=== PATIENT | male | born 1970 | race Caucasian/White ===

== ENCOUNTER 2018-03-25 09:36 | Emergency (ER) | payer OTHER, SELFPAY ==
[2018-03-25] MEDS: GI COCKTAIL 50ML BTL(HYOSCYAMINE/MAALOX/LIDOCAINE VISCOUS)(1:3:1) PO (10:12)
== END 2018-03-25 10:18 | disposition home or self-care (01) ==
LOC: M ED 09:36
DX: K21.0 Gastro-esophageal reflux disease with esophagitis (principal); J45.909 Unspecified asthma, uncomplicated; F41.9 Anxiety disorder, unspecified; E78.9 Disorder of lipoprotein metabolism, unspecified; Z79.899 Other long term (current) drug therapy; Z91.048 Other nonmedicinal substance allergy status
CPT/HCPCS: 99282

== ENCOUNTER 2018-04-02 05:10 | Emergency (ER) | payer OTHER ==
[2018-04-02] MEDS: FLEET OIL RETENTION ENEMA PR (07:07)
[2018-04-02] MEDS ORDERED: KETOROLAC 60 MG/2 ML VIAL (J1885) IM (08:00)
[2018-04-02] MEDS ORDERED: MAGNESIUM CITRATE 300 ML BTL PO (09:15)
== END 2018-04-02 09:50 | disposition home or self-care (01) ==
LOC: M ED 05:10
DX: K59.00 Constipation, unspecified (principal); E78.00 Pure hypercholesterolemia, unspecified; F41.9 Anxiety disorder, unspecified; Z79.899 Other long term (current) drug therapy; Z91.048 Other nonmedicinal substance allergy status
CPT/HCPCS: 74019

== ENCOUNTER 2018-05-14 09:18 | Emergency (ER) | payer OTHER, SELFPAY | END 2018-05-14 09:46 | disposition home or self-care (01) | LOC: M ED 09:18 | DX: S10.86XA Insect bite of other specified part of neck, initial encounter (principal); S40.861A Insect bite (nonvenomous) of right upper arm, initial encounter; S80.861A Insect bite (nonvenomous), right lower leg, initial encounter; S80.812A Abrasion, left lower leg, initial encounter; T63.441A Toxic effect of venom of bees, accidental (unintentional), initial encounter; L03.115 Cellulitis of right lower limb; X58.XXXA Exposure to other specified factors, initial encounter; Y92.89 Other specified places as the place of occurrence of the external cause; K22.70 Barrett's esophagus without dysplasia; J45.909 Unspecified asthma, uncomplicated; Z91.048 Other nonmedicinal substance allergy status; Z79.899 Other long term (current) drug therapy | CPT/HCPCS: 99282 ==

== ENCOUNTER 2018-11-05 02:30 | Emergency (ER) | payer OTHER ==
[~2018-11-05] VITALS: Ht 172.7 cm; Wt 72.7 kg
[2018-11-05 02:30] VITALS: BP 157/102
[~2018-11-05 02:30] MED LIST: CRES20TA PO; KEFL500C17 PO; LIDO1SOL7 PO; OMEP40CA2 PO; PRED20TA PO; PROT1TAB2 PO; ZOFR4TAB14 PO
[2018-11-05] MEDS ORDERED: AUGMENTIN 875 MG TAB PO ONE (03:00)
[2018-11-05] MEDS ORDERED: AUGM500T34 PO (03:01)
== END 2018-11-05 03:13 | disposition home or self-care (01) ==
LOC: M ED 02:30
DX: J02.9 Acute pharyngitis, unspecified (principal); R50.9 Fever, unspecified; K21.9 Gastro-esophageal reflux disease without esophagitis; Z91.018 Allergy to other foods; Z79.899 Other long term (current) drug therapy

== ENCOUNTER 2019-10-08 08:44 | Emergency (ER) | payer OTHER, SELFPAY ==
[~2019-10-08] VITALS: Ht 172.7 cm; Wt 83.0 kg
[~2019-10-08 08:44] MED LIST changes: +AUGM500T34 PO; -CRES20TA PO; +CRES20TA2 PO; -LIDO1SOL7 PO; +LIDO1SOL8 PO; -OMEP40CA2 PO; +OMEP40CA97 PO
[2019-10-08] MEDS ORDERED: metoprolol (08:54)
[2019-10-08] MEDS ORDERED: ROSU5TAB5 PO (08:54)
[2019-10-08 10:41] LABS: INFLUENZA A AMPLIFICATION NEGATIVE (NEGATIVE); INFLUENZA B AMPLIFICATION NEGATIVE (NEGATIVE)
[2019-10-08] MEDS ORDERED: MUCI600T31 PO (10:47)
[2019-10-08] MEDS ORDERED: BENZ200C70 PO (10:47)
[2019-10-08 10:50] VITALS: BP 143/92
== END 2019-10-08 10:52 | disposition home or self-care (01) ==
LOC: M ED 08:44
DX: J06.9 Acute upper respiratory infection, unspecified (principal); B34.9 Viral infection, unspecified

== ENCOUNTER → 2020-07-28 | Outpatient (CLI) | payer SELFPAY ==
[~2020-07-28] MED LIST changes: +BENZ200C70 PO; -LIDO1SOL8 PO; +LIDO2SOL17 PO; +MUCI600T31 PO; +ROSU5TAB5 PO; +metoprolol
== END ==
LOC: M LABSMTC 13:20
PROVIDERS: ATTEND Pediatrics
DX: Z20.828 Contact with and (suspected) exposure to other viral communicable diseases (principal)

== ENCOUNTER → 2020-08-25 | Outpatient (CLI) | payer OTHER, SELFPAY ==
[~2020-08-25] MED LIST changes: +FLON1SPR NARES; +LEVAINH INH
== END ==
LOC: M LABSMTC 11:30
PROVIDERS: ATTEND Family Medicine
DX: Z11.59 Encounter for screening for other viral diseases (principal)

== ENCOUNTER 2020-09-11 11:16 | Emergency (ER) | payer OTHER, MEDICAID ==
[~2020-09-11] VITALS: Ht 172.7 cm; Wt 92.1 kg
[~2020-09-11 11:16] MED LIST changes: -FLON1SPR NARES; -LEVAINH INH
[2020-09-11] MEDS ORDERED: FLON1SPR NARES (11:25)
[2020-09-11 12:21] LABS: BASO % 0.8 % (0.0-1.0); EOS # 0.2 10^3/uL (0.0-0.5); EOS % 4.5 % (0.0-3.0); HEMATOCRIT 47.8 % (42.0-52.0); HEMOGLOBIN 15.9 g/dl (13.5-17.5); LYMPH % 38.4 % (24.0-44.0); MEAN CORPUSCULAR HEMOGLOBIN 30.2 pg (27.0-33.0); MEAN CORPUSCULAR HGB CONC 33.3 g/dl (32.0-36.5); MEAN CORPUSCULAR VOLUME 90.7 fl (80.0-96.0); MONO # 0.4 10^3/uL (0.0-0.8); MONO % 8.4 % (0.0-5.0); NEUTROPHILS # 2.4 10^3/uL (1.5-8.5); NEUTROPHILS % 47.5 % (36.0-66.0); PLATELET COUNT, AUTOMATED 187 10^3/uL (150-450); RED BLOOD COUNT 5.27 10^6/uL (4.30-6.10); WHITE BLOOD COUNT 5.1 10^3/uL (4.0-10.0)
--- NOTE | 2020-09-11 12:28 | REP ---
INDICATION: sob COMPARISON: 04/24/2014 TECHNIQUE: Portable AP view of the chest FINDINGS: The mediastinum and cardiac silhouette are stable and within normal limits for portable technique. The lung scherer are clear without acute consolidation, effusion, or pneumothorax. Skeletal structures are intact. IMPRESSION: No acute cardiopulmonary process appreciated. <Electronically signed by Garth Burgos > 09/11/20 [id number]
[2020-09-11 12:58] LABS: BLOOD UREA NITROGEN 7 MG/DL (7-18); CALCIUM LEVEL 8.8 MG/DL (8.5-10.1); CARBON DIOXIDE LEVEL 21 MEQ/L (21-32); CHLORIDE LEVEL 109 MEQ/L (98-107); CK-MB VALUE MASS < 1.0 NG/ML (<3.6); CPK CREATINE PHOSPHOKINASE 194 U/L (39-308); CREATININE FOR GFR 1.24 MG/DL (0.70-1.30); GLOMERULAR FILTRATION RATE > 60.0 (>60); GLUCOSE, FASTING 116 MG/DL (70-100); MB/CK RELATIVE INDEX 0.52 (< OR =4); POTASSIUM SERUM 3.9 MEQ/L (3.5-5.1); SODIUM LEVEL 139 MEQ/L (136-145); THYROID STIMULATING HORMONE 0.621 uIU/ML (0.358-3.740); TROPONIN I < 0.02 NG/ML (< 0.10)
[2020-09-11 13:45] VITALS: BP 108/67
[2020-09-11] MEDS ORDERED: LEVAINH INH (14:02)
--- NOTE | 2020-09-12 09:19 | ECGEPIP ---
[facility] - ED Test Date: 2020-09-11 Pat Name: PERRY DORSEY Department: Room: - Gender: Male [employer]: JEFRY : 1970 Requested By: Nikki Hutchinson Order Number: [id number] Reading MD: Nikki Hutchinson Measurements Intervals [place] Rate: 65 P: 23 NH: 174 QRS: 50 QRSD: 87 T: 22 QT: 380 QTc: 395 Interpretive Statements SINUS RHYTHM SIMILAR 07/08/15 Electronically Signed on 09-12-2020 9:19:07 EST by Nikki Hutchinson
== END 2020-09-11 14:23 | disposition home or self-care (01) ==
LOC: M ED 11:16
DX: R06.02 Shortness of breath (principal); J45.909 Unspecified asthma, uncomplicated; E78.5 Hyperlipidemia, unspecified; Z79.899 Other long term (current) drug therapy

== ENCOUNTER 2021-03-21 21:50 | Emergency (ER) | payer OTHER ==
[~2021-03-21] VITALS: Ht 172.7 cm; Wt 88.0 kg
[~2021-03-21 21:50] MED LIST changes: +FLON1SPR NARES; +LEVAINH INH; +OMEP40CA4 PO; -OMEP40CA97 PO
[2021-03-21] MEDS ORDERED: HYDR1CRE30 TOP (22:10)
[2021-03-21] MEDS ORDERED: METO1TAB32 PO (22:10)
[2021-03-21] MEDS ORDERED: predniSONE 20 MG TAB PO ONE (23:50)
[2021-03-21 23:53] VITALS: BP 138/72
[2021-03-21] MEDS ORDERED: PRED10TA2 PO (23:53)
== END 2021-03-21 23:58 | disposition home or self-care (01) ==
LOC: M ED 21:50
DX: T63.441A Toxic effect of venom of bees, accidental (unintentional), initial encounter (principal); L29.9 Pruritus, unspecified; K22.70 Barrett's esophagus without dysplasia; F41.9 Anxiety disorder, unspecified; Z79.899 Other long term (current) drug therapy
CPT/HCPCS: 99283; J7512

== ENCOUNTER → 2022-10-26 | Outpatient (CLI) | payer OTHER ==
[~2022-10-26] MED LIST changes: +GASTROGRAFIN SOLUTION 30ML As Ordered ONE; +HYDR1CRE30 TOP; +LIDO15SO4 PO; -LIDO2SOL17 PO; +METO1TAB32 PO; +PRED10TA2 PO
== END ==
LOC: M RAD 16:44
PROVIDERS: ATTEND Internal Medicine
DX: K40.90 Unilateral inguinal hernia, without obstruction or gangrene, not specified as recurrent (principal); R97.20 Elevated prostate specific antigen [PSA]
CPT/HCPCS: 72192; Q9963

== ENCOUNTER → 2022-11-07 | Outpatient (CLI) | payer OTHER ==
[~2022-11-07] MED LIST changes: +ASPI81CH33 PO; +CHRO400T4 PO; +CO Q200C10 PO; +DRIS50003 PO; -GASTROGRAFIN SOLUTION 30ML As Ordered ONE; +MAGN250T7 PO; +POTA99CA2 PO; +ROSU40TA4 PO; +TURM500T PO
== END ==
LOC: M LABSMTC 07:48
PROVIDERS: ATTEND Anesthesiology
DX: Z01.812 Encounter for preprocedural laboratory examination (principal)

== ENCOUNTER 2022-11-10 06:08 | Day surgery (SDC) | payer OTHER ==
[~2022-11-10] VITALS: Ht 172.7 cm; Wt 74.4 kg
[~2022-11-10 06:08] MED LIST changes: +CelecoXIB 400 MG CAP PO ONE; +ceFAZolin SOD 2 GM in IV 1 EA IV ONE
[2022-11-10] MEDS ORDERED: LR 1,000 ML IV SCH ×2 (06:55→10:20)
[2022-11-10] MEDS ORDERED: LIDOCAINE 1% SDV 5ML VIAL SC PRN (06:55)
[2022-11-10] MEDS ORDERED: LIDOCAINE 2% 100MG/5ML SDV (FOR ANES.) As Ordered ONE (07:08)
[2022-11-10] MEDS ORDERED: propofoL 200 MG/20 ML VIAL As Ordered ONE (07:08)
[2022-11-10] MEDS ORDERED: fentaNYL 100 MCG/2 ML INJECTION As Ordered ONE ×2 (07:09→08:09)
[2022-11-10] MEDS ORDERED: ONDANSETRON 4MG 2ML VIAL As Ordered ONE (07:09)
[2022-11-10] MEDS ORDERED: ROCURONIUM BROMIDE 50MG/5ML VIAL As Ordered ONE ×2 (07:09→08:09)
[2022-11-10] MEDS ORDERED: MIDAZOLAM INJ 2MG/2ML VIAL As Ordered ONE (07:09)
[2022-11-10] MEDS ORDERED: ACETAMINOPHEN 1000MG 100ML IV BAG As Ordered ONE (07:14)
[2022-11-10] MEDS ORDERED: LIDOCAINE 1% SDV 30ML VIAL As Ordered ONE (07:19)
[2022-11-10] MEDS ORDERED: BUPIVACAINE HCL 0.25% 30ML VIAL As Ordered ONE (07:20)
[2022-11-10] MEDS ORDERED: SUGAMMADEX SODIUM 500 MG/5 ML VIAL (BRIDION) As Ordered ONE (07:51)
[2022-11-10] MEDS ORDERED: KETOROLAC 60MG 2ML VIAL As Ordered ONE (07:51)
[2022-11-10] MEDS ORDERED: PHENYLephrine 500MCG 5ML (100MCG/ML) SYRINGE As Ordered ONE (08:04)
[2022-11-10] MEDS ORDERED: ePHEDrine SULFATE 25 MG/5 ML(5MG/ML) SYRINGE As Ordered ONE (08:05)
[2022-11-10] MEDS ORDERED: KETOROLAC 30 MG/ML 1ML VIAL IV SCH ×2 (10:05→15:00)
[2022-11-10] MEDS ORDERED: NORCO, ANEXSIA 5/325MG TABLET (HYDROcodone/ACETAMINOPHEN) PO PRN ×3 (10:10→10:20)
[2022-11-10] MEDS ORDERED: MEPERIDINE 25 MG/ML 1ML VIAL IV PRN (10:20)
[2022-11-10] MEDS ORDERED: HYDROMORPHONE HCL 0.5 MG/ 0.5 ML SYRINGE IV PRN (10:20)
[2022-11-10] MEDS ORDERED: ALBUTEROL SULFATE 2.5MG/0.5ML INH NEB SOLN INH PRN (10:20)
[2022-11-10] MEDS ORDERED: fentaNYL 100 MCG/2 ML INJECTION IV PRN (10:20)
[2022-11-10] MEDS ORDERED: ONDANSETRON 4MG 2ML VIAL IV PRN (10:20)
[2022-11-10 12:00] VITALS: BP 136/80
== END 2022-11-10 12:15 | disposition home or self-care (01) ==
LOC: M SDC 06:08
PROVIDERS: ATTEND Surgery
DX: K40.20 Bilateral inguinal hernia, without obstruction or gangrene, not specified as recurrent (principal); J45.909 Unspecified asthma, uncomplicated; E78.5 Hyperlipidemia, unspecified; F41.9 Anxiety disorder, unspecified; K22.70 Barrett's esophagus without dysplasia; Z79.82 Long term (current) use of aspirin; Z79.899 Other long term (current) drug therapy
CPT/HCPCS: 49650; 93005; C1781; J0690; J1100; J2250; J2370; J2405; J3010; S2900

== ENCOUNTER 2023-02-28 12:42 | Emergency (ER) | payer OTHER ==
[~2023-02-28] VITALS: Ht 172.7 cm; Wt 77.1 kg
[~2023-02-28 12:42] MED LIST changes: -CelecoXIB 400 MG CAP PO ONE; +LIDO15SO PO; -LIDO15SO4 PO; -ceFAZolin SOD 2 GM in IV 1 EA IV ONE
[2023-02-28] MEDS ORDERED: ACETAMINOPHEN TAB 650MG DOSE (2X325MG) PO ONE (15:15)
[2023-02-28] MEDS ORDERED: IBUPROFEN 600MG TAB PO ONE (15:15)
[2023-02-28] MEDS ORDERED: AUGMENTIN 875 MG TAB PO ONE (15:15)
[2023-02-28] MEDS ORDERED: IBUP-1022 PO (15:19)
[2023-02-28] MEDS ORDERED: AMOX875T2 PO (15:19)
[2023-02-28 15:25] VITALS: BP 123/62; TEMP 98; O2SAT 98
== END 2023-02-28 15:26 | disposition home or self-care (01) ==
LOC: M ED 12:42
DX: K08.89 Other specified disorders of teeth and supporting structures (principal); G50.1 Atypical facial pain; I10 Essential (primary) hypertension; J45.909 Unspecified asthma, uncomplicated; F41.9 Anxiety disorder, unspecified; Z91.09 Other allergy status, other than to drugs and biological substances; Z79.2 Long term (current) use of antibiotics; Z79.899 Other long term (current) drug therapy

== ENCOUNTER 2023-03-03 13:04 | Emergency (ER) | payer OTHER ==
[~2023-03-03] VITALS: Ht 172.7 cm; Wt 75.2 kg
[~2023-03-03 13:04] MED LIST changes: +AMOX875T2 PO; +IBUP-1022 PO
[2023-03-03] MEDS ORDERED: CLIN150C17 PO (13:37)
[2023-03-03 17:44] LABS: BASO # 0.1 10^3/uL (0.0-0.2); BASO % 0.4 % (0.0-1.0); EOS # 0.1 10^3/uL (0.0-0.5); EOS % 0.8 % (0.0-3.0); HEMATOCRIT 43.1 % (42.0-52.0); HEMOGLOBIN 14.2 g/dl (13.5-17.5); LYMPH # 2.9 10^3/uL (1.5-5.0); LYMPH % 22.5 % (24.0-44.0); MEAN CORPUSCULAR HEMOGLOBIN 30.1 pg (27.0-33.0); MEAN CORPUSCULAR HGB CONC 32.9 g/dl (32.0-36.5); MEAN CORPUSCULAR VOLUME 91.5 fl (80.0-96.0); MONO # 1.1 10^3/uL (0.0-0.8); MONO % 8.3 % (2.0-8.0); NEUTROPHILS # 8.7 10^3/uL (1.5-8.5); NEUTROPHILS % 67.7 % (36.0-66.0); PLATELET COUNT, AUTOMATED 230 10^3/uL (150-450); RED BLOOD COUNT 4.71 10^6/uL (4.30-6.10); WHITE BLOOD COUNT 12.8 10^3/uL (4.0-10.0)
[2023-03-03 18:09] LABS: ERYTHROCYTE SEDIMENTATION RATE 36 mm/hr (0-20)
[2023-03-03 18:11] LABS: BLOOD UREA NITROGEN 16 MG/DL (9-23); CALCIUM LEVEL 9.8 MG/DL (8.5-10.1); CARBON DIOXIDE LEVEL 28 MMOL/L (20-31); CHLORIDE LEVEL 106 MMOL/L (98-107); CREATININE FOR GFR 0.86 MG/DL (0.70-1.30); GLOMERULAR FILTRATION RATE > 60.0 (>56); GLUCOSE, FASTING 96 MG/DL (60-100); POTASSIUM SERUM 4.1 MMOL/L (3.5-5.1); SODIUM LEVEL 141 MMOL/L (136-145)
[2023-03-03] MEDS ORDERED: CLINDAMYCIN 900 MG in IV 1 EA IV ONE (19:15)
[2023-03-03] MEDS ORDERED: DOXYCYCLINE HYCLATE 100 MG in D5W MINI-BAG PLUS 100 ML IV ONE (19:20)
[2023-03-03] MEDS ORDERED: DOXY-443 PO (21:29)
[2023-03-03] MEDS ORDERED: LIDOCAINE 2% MDV 20ML VIAL As Ordered ONE (21:33)
[2023-03-03] MEDS ORDERED: LIDOCAINE 2% MDV 20ML VIAL SC ONE (21:35)
[2023-03-03 22:00] VITALS: BP 140/96; TEMP 98.8; O2SAT 97
== END 2023-03-03 22:14 | disposition home or self-care (01) ==
LOC: M ED 13:04
DX: L03.115 Cellulitis of right lower limb (principal); I10 Essential (primary) hypertension; E78.5 Hyperlipidemia, unspecified; F10.10 Alcohol abuse, uncomplicated; Z88.1 Allergy status to other antibiotic agents; Z91.048 Other nonmedicinal substance allergy status; Z79.82 Long term (current) use of aspirin; Z79.811 Long term (current) use of aromatase inhibitors; Z79.899 Other long term (current) drug therapy

== ENCOUNTER → 2023-03-06 | Outpatient (CLI) | payer OTHER ==
[~2023-03-06] MED LIST changes: +CLIN150C17 PO; +DOXY-443 PO
== END ==
LOC: M SOG 08:51
PROVIDERS: ATTEND Orthopaedic Surgery
DX: M25.561 Pain in right knee (principal)

== ENCOUNTER 2023-04-09 14:49 | Emergency (ER) | payer OTHER ==
[~2023-04-09] VITALS: Ht 172.7 cm; Wt 79.1 kg
[2023-04-09 14:51] VITALS: BP 109/61; TEMP 99.1; O2SAT 96
[2023-04-09] MEDS ORDERED: predniSONE 20 MG TAB PO ONE (15:40)
== END 2023-04-09 15:46 | disposition home or self-care (01) ==
LOC: M ED 14:49
DX: T63.441A Toxic effect of venom of bees, accidental (unintentional), initial encounter (principal); Z88.1 Allergy status to other antibiotic agents; Z91.030 Bee allergy status; Z91.048 Other nonmedicinal substance allergy status; Z79.82 Long term (current) use of aspirin; Z79.899 Other long term (current) drug therapy; Z79.810 Long term (current) use of selective estrogen receptor modulators (SERMs)

== ENCOUNTER 2023-08-04 09:18 | Emergency (ER) | payer OTHER ==
[~2023-08-04] VITALS: Ht 172.7 cm; Wt 78.4 kg
[2023-08-04 11:17] LABS: BASO # 0.1 10^3/uL (0.0-0.2); BASO % 0.7 % (0.0-1.0); EOS # 0.2 10^3/uL (0.0-0.5); EOS % 3.1 % (0.0-3.0); HEMATOCRIT 44.7 % (42.0-52.0); HEMOGLOBIN 15.1 g/dl (13.5-17.5); LYMPH # 2.5 10^3/uL (1.5-5.0); LYMPH % 36.3 % (24.0-44.0); MEAN CORPUSCULAR HGB CONC 33.8 g/dl (32.0-36.5); MEAN CORPUSCULAR VOLUME 88.7 fl (80.0-96.0); MONO # 0.5 10^3/uL (0.0-0.8); MONO % 6.6 % (2.0-8.0); NEUTROPHILS # 3.6 10^3/uL (1.5-8.5); PLATELET COUNT, AUTOMATED 227 10^3/uL (150-450); RED BLOOD COUNT 5.04 10^6/uL (4.30-6.10); WHITE BLOOD COUNT 6.8 10^3/uL (4.0-10.0)
[2023-08-04] MEDS ORDERED: KETOROLAC 30 MG/ML 1ML VIAL IV ONE (11:30)
[2023-08-04 11:34] LABS: ALBUMIN 4.7 G/DL (3.2-5.2); BILIRUBIN,DIRECT 0.4 MG/DL (<0.4); BILIRUBIN,TOTAL 1.4 MG/DL (0.3-1.2); TOTAL PROTEIN 7.6 G/DL (5.7-8.2)
[2023-08-04] MEDS ORDERED: ISOVUE-370 76% 100ML VIAL As Ordered ONE (11:34)
[2023-08-04] MEDS ORDERED: NAPR-885 PO (15:24)
[2023-08-04] MEDS ORDERED: METH-1164 PO (15:24)
[2023-08-04 15:25] VITALS: BP 129/80; TEMP 99; O2SAT 100
== END 2023-08-04 15:35 | disposition home or self-care (01) ==
LOC: M ED 09:18
DX: S39.011A Strain of muscle, fascia and tendon of abdomen, initial encounter (principal); R91.1 Solitary pulmonary nodule; I10 Essential (primary) hypertension; E78.5 Hyperlipidemia, unspecified; F10.10 Alcohol abuse, uncomplicated; F41.9 Anxiety disorder, unspecified; Z79.82 Long term (current) use of aspirin; Z79.810 Long term (current) use of selective estrogen receptor modulators (SERMs); Z79.899 Other long term (current) drug therapy; Z88.0 Allergy status to penicillin; Z88.1 Allergy status to other antibiotic agents; Z91.048 Other nonmedicinal substance allergy status; Z91.030 Bee allergy status
CPT/HCPCS: 72110; 73502; 74177; 76857; 76870; 80047; 80076; 81001; 83690; 85025; 93975; 96374; 99284; J1885; Q9967

== ENCOUNTER → 2023-12-06 | Outpatient (CLI) | payer OTHER ==
[~2023-12-06] MED LIST changes: -LIDO15SO PO; +LIDO15SO8 PO; +METH-1164 PO; +NAPR-885 PO
== END ==
LOC: M RAD 09:33
PROVIDERS: ATTEND Internal Medicine
DX: R91.1 Solitary pulmonary nodule (principal)